=== PATIENT | female | born 1975 | race American Indian/Alaskan Native ===

== ENCOUNTER 2022-04-28 15:34 | Emergency (ER) | payer MEDICARE ==
[2022-04-28] MEDS ORDERED: HALOPERIDOL LACTATE 5 MG/1 ML INJ IM ONE (15:39)
[2022-04-28 16:18] LABS: Basophils # (Auto) 0.1 K/mm3 (0.0-0.1); Basophils % (Auto) 0.6 % (0.0-1.8); Eosinophils # (Auto) 0.2 K/mm3 (0.0-0.4); Eosinophils % (Auto) 1.5 % (0.0-4.3); Hematocrit 43.9 % (30.3-42.9); Lymphocytes # (Auto) 2.3 K/mm3 (1.2-5.4); Lymphocytes % (Auto) 20.3 % (13.4-35.0); Mean Corpuscular HGB Conc 32 % (30-34); Mean Corpuscular Volume 87 fl (79-97); Monocytes # (Auto) 1.1 K/mm3 (0.0-0.8); Monocytes % (Auto) 9.8 % (0.0-7.3); Platelet Count 378 K/mm3 (140-440); Red Blood Count 5.02 M/mm3 (3.65-5.03); Red Cell Distribution Width 15.3 % (13.2-15.2)
[2022-04-28 16:41] LABS: BUN/Creatinine Ratio 10; Blood Urea Nitrogen 10 mg/dL (7-17); Calcium 9.3 mg/dL (8.4-10.2); Hemolysis Index 2
[2022-04-28] MEDS ORDERED: LORazepam 1 MG TAB PO ONE (21:28)
[2022-04-28] MEDS: ZIPRASIDONE MESYLATE 20 MG VIAL IM PRN (21:43)
--- NOTE | 2022-04-28 21:56 | Emergency Department Report ---
ED General Adult HPI - General Chief complaint: Psych Stated complaint: MENTAL HEALTH PUI?: No Time Seen by Provider: 04/28/22 15:39 Source: EMS Mode of arrival: Ambulatory Limitations: Other - History of Present Illness Initial comments: Pt arriving from [place]. Presents rambling, yelling. pt verbliased threatening words to staff there, pt was 1013 by [facility] , manic agitated responding to internal stimuli -: unknown Severity scale (0 -10): 0 Consistency: constant Worsens with: none Associated Symptoms: denies: denies other symptoms, confusion, chest pain, cough - Related Data Home Medications Medication Instructions Recorded Confirmed Last Taken Divalproex ER [Depakote ER] 1,000 mg PO BID 09/01/14 09/01/14 Unknown Folic Acid [Folvite] 1 mg PO QDAY 09/01/14 09/01/14 Unknown LORazepam [Ativan] 0.5 mg PO 1800 09/01/14 09/01/14 Unknown LORazepam [Ativan] 2 mg PO HS 09/01/14 09/01/14 Unknown Topiramate [Topamax TAB] 200 mg PO HS 09/01/14 09/01/14 Unknown Valproic Acid [Depakene] 250 mg PO HS 09/01/14 09/01/14 Unknown Allergies Allergy/AdvReac Type Severity Reaction Status Date / Time diphenhydramine HCl Allergy Unknown Verified 09/01/14 10:42 [From Benadryl] ED Review of Systems ROS: Stated complaint: MENTAL HEALTH Other details as noted in HPI Comment: Unobtainable due to pts medical conditions ED Past Medical Hx - Past Medical History Hx Psychiatric Treatment: Yes - Surgical History Additional Surgical History: Left leg fracture repair as a child - Social History Smoking Status: Current Some Day Smoker Substance Use Type: None - Medications Home Medications: Home Medications Medication Instructions Recorded Confirmed Last Taken Type Divalproex ER [Depakote ER] 1,000 mg PO BID 09/01/14 09/01/14 Unknown History Folic Acid [Folvite] 1 mg PO QDAY 09/01/14 09/01/14 Unknown History LORazepam [Ativan] 0.5 mg PO 1800 09/01/14 09/01/14 Unknown History LORazepam [Ativan] 2 mg PO HS 09/01/14 09/01/14 Unknown History Topiramate [Topamax TAB] 200 mg PO HS 09/01/14 09/01/14 Unknown History Valproic Acid [Depakene] 250 mg PO HS 09/01/14 09/01/14 Unknown History ED Physical Exam - General Limitations: Other General appearance: alert, anxious - Head Head exam: Present: atraumatic, normocephalic - Eye Eye exam: Present: normal appearance - ENT ENT exam: Present: mucous membranes moist - Neck Neck exam: Present: normal inspection - Respiratory Respiratory exam: Present: normal lung sounds bilaterally. Absent: respiratory distress - Cardiovascular Cardiovascular Exam: Present: regular rate, normal rhythm. Absent: systolic murmur, diastolic murmur, rubs, gallop - GI/Abdominal GI/Abdominal exam: Present: soft, normal bowel sounds - Extremities Exam Extremities exam: Present: normal inspection - Back Exam Back exam: Present: normal inspection - Neurological Exam Neurological exam: Present: alert, oriented X3 - Psychiatric Psychiatric exam: Present: anxious, manic - Expanded Psychiatric Exam Expanded Focused psych exam: Present: pressured speech, internal stimuli, psychomotor agitation, delusional, paranoid, perseverating, restlessness - Skin Skin exam: Present: warm, dry, intact, normal color. Absent: rash ED Course Vital Signs 04/28/22 04/28/22 04/28/22 16:56 17:00 20:45 Temperature 97.3 F L 97.9 F Pulse Rate 85 83 Respiratory 18 18 Rate Blood Pressure 109/51 105/66 [Right] O2 Sat by Pulse 100 97 98 Oximetry 04/29/22 04/29/22 11:21 11:22 Temperature 97.6 F Pulse Rate 62 Respiratory 18 Rate Blood Pressure 121/58 [Right] O2 Sat by Pulse 97 97 Oximetry ED Medical Decision Making - Lab Data Result diagrams: 04/28/22 15:56 04/28/22 15:56 - Medical Decision Making medically cleared , 1013 by betty juares and karan given for agitation Critical care attestation.: If time is entered above; I have spent that time in minutes in the direct care of this critically ill patient, excluding procedure time. ED Disposition Clinical Impression: Agitation, Sondra, Psychosis Disposition: 30 STILL A PATIENT Is pt being admited?: No Does the pt Need Aspirin: No Condition: Stable Referrals: PRIMARY CARE, [Primary Care Provider] - 3-5 Days
[2022-04-29 02:14] LABS: Bilirubin,Urine NEG (Negative); Blood,Urine SM (Negative); Color,Urine Amber (Yellow)
[2022-04-29 02:15] LABS: Bacteria,Urine 2+ /HPF (Negative); Hyaline Casts,Urine 32 /LPF; Mucus,Urine 3+ /HPF
[2022-04-29 02:17] LABS: Amphetamine Screen,Urine PRESUMPTIVE NEGATIVE; Benzodiazepines Screen,Urine PRESUMPTIVE NEGATIVE; Cannabinoid Screen,Urine PRESUMPTIVE NEGATIVE; Cocaine Screen,Urine PRESUMPTIVE NEGATIVE; Methadone Screen,Urine PRESUMPTIVE NEGATIVE; Opiate Screen,Urine PRESUMPTIVE NEGATIVE
[2022-04-29] MEDS: ZIPRASIDONE MESYLATE 20 MG VIAL IM PRN (17:19)
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
[2022-04-29] MEDS: traZODone 50 MG TAB PO SCH (22:02)
[2022-04-29] MEDS: SULFAMETHOXAZOLE/TRIMETHOPRIM 800/160MG DS TAB PO SCH (22:02)
[2022-04-30] MEDS: SULFAMETHOXAZOLE/TRIMETHOPRIM 800/160MG DS TAB PO SCH ×2 (12:03→22:49)
--- NOTE | 2022-04-30 16:24 | Event Note ---
Date: 04/30/22 Patient reevaluated today. Upon my entering the room patient is lying comfortably in bed. States that she wants to leave. She appears to be mildly irritated that she is here and is cursing. Awaiting evaluation by mental health.
--- NOTE | 2022-04-30 17:35 | Progress Note ---
Subjective - Reason for Consult Consult date: 04/30/22 Reason for consult: MHE - Chief Complaint Chief complaint: SUBJECTIVE DATE SEEN:04/30/2022 Patient seen today in the ER. Patient lying on the bed, but got up when i came in. Patient States "i am really not sick" Patient hyper verbal, but denies having any SI/HI thoughts at this time.Patient states she is compliant with all her medications. Mental Status Exam - Vital signs Last Vital Signs Temp 98.6 F 04/30/22 11:25 Pulse 89 04/30/22 11:25 Resp 20 04/30/22 11:25 BP 138/82 04/30/22 11:25 Pulse Ox 98 04/30/22 11:25
[2022-04-30] MEDS: ZIPRASIDONE MESYLATE 20 MG VIAL IM PRN (22:49)
[2022-04-30] MEDS: traZODone 50 MG TAB PO SCH (22:49)
--- NOTE | 2022-05-01 11:31 | Event Note ---
Date: 05/01/22 I HAVE SEEN THE PATIENT MYSELF AND REVIEWED THE PREVIOUS NOTES WHICH NEED REPEAT CBC AND ALSO SODIUM TO BE DRAW; I WILL PLACE ORDER. PATIENT HERSELF DENIES SI/HI OR HALLUCINATION (AUDITORY/VISUAL/TACTILE). PENDING FURTHER RECOMMENDATION FROM BEHAVIOR HEALTH. - LOREDO
[2022-05-01 11:39] LABS: Hematocrit 44.4 % (30.3-42.9); Hemoglobin 14.2 gm/dl (10.1-14.3); Mean Corpuscular HGB Conc 32 % (30-34); Mean Corpuscular Volume 88 fl (79-97); Platelet Count 331 K/mm3 (140-440); Red Blood Count 5.05 M/mm3 (3.65-5.03); Red Cell Distribution Width 15.6 % (13.2-15.2)
[2022-05-01 11:54] LABS: BUN/Creatinine Ratio 11; Blood Urea Nitrogen 9 mg/dL (7-17); Calcium 9.1 mg/dL (8.4-10.2); Hemolysis Index 12
[2022-05-01] MEDS: SULFAMETHOXAZOLE/TRIMETHOPRIM 800/160MG DS TAB PO SCH (13:08)
--- NOTE | 2022-05-01 16:11 | Progress Note ---
<MARY GALICIA - Last Filed: 05/01/22 15:44> Subjective - Reason for Consult Consult date: 05/01/22 Reason for consult: MHE - Chief Complaint Chief complaint: Subjective - DATE SEEN: 05/01/22 Patient seen today. Patient asks" Can i go back to where i was or to my fathers place". Patient observed to be fidgeting . Patient denies any SI/HI at this time. SUBJECTIVE DATE SEEN:04/30/2022 Patient seen today in the ER. Patient lying on the bed, but got up when i came in. Patient States "i am really not sick" Patient hyper verbal, but denies having any SI/HI thoughts at this time.Patient states she is compliant with all her medications. Mental Status Exam - Vital signs Last Vital Signs Temp 98.6 F 04/30/22 11:25 Pulse 89 04/30/22 11:25 Resp 20 04/30/22 11:25 BP 138/82 04/30/22 11:25 Pulse Ox 98 04/30/22 11:25 <LISHA BENSON - Last Filed: 05/02/22 15:32> Mental Status Exam - Vital signs Last Vital Signs Temp 98.4 F 05/02/22 09:04 Pulse 65 05/02/22 09:04 Resp 18 05/02/22 09:04 BP 113/61 05/02/22 09:04 Pulse Ox 95 05/02/22 09:05
[2022-05-02] MEDS: SULFAMETHOXAZOLE/TRIMETHOPRIM 800/160MG DS TAB PO SCH ×2 (09:39→21:53)
--- NOTE | 2022-05-02 12:48 | Event Note ---
Date: 05/02/22 Patient is seen and examined. She is in no acute distress. Initial ER, psychiatric, and nursing documentation reviewed and appreciated. Patient deemed medically suitable for psychiatric placement and disposition during her initial evaluation. She continues to remain suitable for disposition and psychiatric placement. She does not appear to have an emergent medical condition present at this time. She did endorse constipation to nursing team. Have ordered as needed MiraLAX. Of note, urine cultures are negative thus far. Laboratory st udies, vital signs are reviewed and appreciated. Patient sitting down, watching TV, and in no acute distress Vital Signs 04/28/22 04/28/22 04/28/22 16:56 17:00 20:45 Temperature 97.3 F L 97.9 F Pulse Rate 85 83 Respiratory 18 18 Rate Blood Pressure 109/51 105/66 [Right] O2 Sat by Pulse 100 97 98 Oximetry 04/29/22 04/29/22 04/29/22 11:21 11:22 22:09 Temperature 97.6 F 98.0 F Pulse Rate 62 85 Respiratory 18 18 Rate Blood Pressure 121/58 136/73 [Right] O2 Sat by Pulse 97 97 96 Oximetry 04/30/22 05/01/22 05/02/22 11:25 17:25 09:04 Temperature 98.6 F 98.4 F Pulse Rate 89 75 65 Respiratory 20 18 18 Rate Blood Pressure 138/82 130/73 113/61 [Right] O2 Sat by Pulse 98 99 95 Oximetry 05/02/22 09:05 Temperature Pulse Rate Respiratory Rate Blood Pressure [Right] O2 Sat by Pulse 95 Oximetry Lab Results 04/28/22 04/28/22 04/28/22 Range/Units 00:00 15:39 15:56 WBC 11.5 H (4.5-11.0) K/mm3 RBC 5.02 (3.65-5.03) M/mm3 Hgb 14.0 (10.1-14.3) gm/dl Hct 43.9 H (30.3-42.9) % MCV 87 (79-97) fl MCH 28 (28-32) pg MCHC 32 (30-34) % RDW 15.3 H (13.2-15.2) % Plt Count 378 (140-440) K/mm3 Lymph % (Auto) 20.3 (13.4-35.0) % [place] % (Auto) 9.8 H (0.0-7.3) % Eos % (Auto) 1.5 (0.0-4.3) % Baso % (Auto) 0.6 (0.0-1.8) % Lymph # (Auto) 2.3 (1.2-5.4) K/mm3 [place] # (Auto) 1.1 H (0.0-0.8) K/mm3 Eos # (Auto) 0.2 (0.0-0.4) K/mm3 Baso # (Auto) 0.1 (0.0-0.1) K/mm3 Seg Neutrophils % 67.8 (40.0-70.0) % Seg Neutrophils # 7.8 H (1.8-7.7) K/mm3 Sodium (137-145) mmol/L Potassium (3.6-5.0) mmol/L Chloride (98-107) mmol/L Carbon Dioxide (22-30) mmol/L Anion Gap mmol/L BUN (7-17) mg/dL Creatinine (0.6-1.2) mg/dL Estimated GFR ml/min BUN/Creatinine Ratio % Glucose (65-100) mg/dL Calcium (8.4-10.2) mg/dL HCG, Qual (Negative) Urine Color [place] (Yellow) Urine Turbidity Cloudy (Clear) Urine pH 5.0 (5.0-7.0) Ur Specific [place] 1.028 (1.003-1.030) Urine Protein 30 mg/dl (Negative) mg/dL Urine Glucose (UA) Neg (Negative) mg/dL Urine Ketones Neg (Negative) mg/dL Urine Blood Sm (Negative) Urine Nitrite Neg (Negative) Urine Bilirubin Neg (Negative) Urine Urobilinogen 2.0 (<2.0) mg/dL Ur Leukocyte Esterase Neg (Negative) Urine WBC (Auto) 20.0 H (0.0-6.0) /HPF Urine RBC (Auto) 99.0 (0.0-6.0) /HPF U Epithel Cells (Auto) 10.0 (0-13.0) /HPF Urine Bacteria (Auto) 2+ (Negative) /HPF Hyaline Casts 32 /LPF Urine Mucus 3+ /HPF Urine Yeast (Budding) 3+ /HPF Salicylates (2.8-20.0) mg/dL Urine Opiates Screen Presumptive negative Urine Methadone Screen Presumptive negative Acetaminophen (10.0-30.0) ug/mL Ur Barbiturates Screen Presumptive negative Ur Phencyclidine Scrn Presumptive negative Ur Amphetamines Screen Presumptive negative U Benzodiazepines Scrn Presumptive negative Urine Cocaine Screen Presumptive negative U Marijuana (THC) Screen Presumptive negative Drugs of Abuse Note Disclamer Plasma/Serum Alcohol (0-0.07) % SARS-CoV-2 (PCR) (Negative) 04/28/22 04/28/22 04/28/22 Range/Units 15:56 15:56 15:56 WBC (4.5-11.0) K/mm3 RBC (3.65-5.03) M/mm3 Hgb (10.1-14.3) gm/dl Hct (30.3-42.9) % MCV (79-97) fl MCH (28-32) pg MCHC (30-34) % RDW (13.2-15.2) % Plt Count (140-440) K/mm3 Lymph % (Auto) (13.4-35.0) % [place] % (Auto) (0.0-7.3) % Eos % (Auto) (0.0-4.3) % Baso % (Auto) (0.0-1.8) % Lymph # (Auto) (1.2-5.4) K/mm3 [place] # (Auto) (0.0-0.8) K/mm3 Eos # (Auto) (0.0-0.4) K/mm3 Baso # (Auto) (0.0-0.1) K/mm3 Seg Neutrophils % (40.0-70.0) % Seg Neutrophils # (1.8-7.7) K/mm3 Sodium 146 H (137-145) mmol/L Potassium 3.7 (3.6-5.0) mmol/L Chloride 111.6 H (98-107) mmol/L Carbon Dioxide 19 L (22-30) mmol/L Anion Gap 19 mmol/L BUN 10 (7-17) mg/dL Creatinine 1.0 (0.6-1.2) mg/dL Estimated GFR > 60 ml/min BUN/Creatinine Ratio 10 % Glucose 108 H (65-100) mg/dL Calcium 9.3 (8.4-10.2) mg/dL HCG, Qual (Negative) Urine Color (Yellow) Urine Turbidity (Clear) Urine pH (5.0-7.0) Ur Specific [place] (1.003-1.030) Urine Protein (Negative) mg/dL Urine Glucose (UA) (Negative) mg/dL Urine Ketones (Negative) mg/dL Urine Blood (Negative) Urine Nitrite (Negative) Urine Bilirubin (Negative) Urine Urobilinogen (<2.0) mg/dL Ur Leukocyte Esterase (Negative) Urine WBC (Auto) (0.0-6.0) /HPF Urine RBC (Auto) (0.0-6.0) /HPF U Epithel Cells (Auto) (0-13.0) /HPF Urine Bacteria (Auto) (Negative) /HPF Hyaline Casts /LPF Urine Mucus /HPF Urine Yeast (Budding) /HPF Salicylates < 0.3 L (2.8-20.0) mg/dL Urine Opiates Screen Urine Methadone Screen Acetaminophen 5.0 L (10.0-30.0) ug/mL Ur Barbiturates Screen Ur Phencyclidine Scrn Ur Amphetamines Screen U Benzodiazepines Scrn Urine Cocaine Screen U Marijuana (THC) Screen Drugs of Abuse Note Plasma/Serum Alcohol (0-0.07) % SARS-CoV-2 (PCR) (Negative) 04/29/22 05/01/22 05/01/22 Range/Units 09:58 11:18 11:18 WBC 6.8 (4.5-11.0) K/mm3 RBC 5.05 H (3.65-5.03) M/mm3 Hgb 14.2 (10.1-14.3) gm/dl Hct 44.4 H (30.3-42.9) % MCV 88 (79-97) fl MCH 28 (28-32) pg MCHC 32 (30-34) % RDW 15.6 H (13.2-15.2) % Plt Count 331 (140-440) K/mm3 Lymph % (Auto) (13.4-35.0) % [place] % (Auto) (0.0-7.3) % Eos % (Auto) (0.0-4.3) % Baso % (Auto) (0.0-1.8) % Lymph # (Auto) (1.2-5.4) K/mm3 [place] # (Auto) (0.0-0.8) K/mm3 Eos # (Auto) (0.0-0.4) K/mm3 Baso # (Auto) (0.0-0.1) K/mm3 Seg Neutrophils % (40.0-70.0) % Seg Neutrophils # (1.8-7.7) K/mm3 Sodium 140 (137-145) mmol/L Potassium 4.4 (3.6-5.0) mmol/L Chloride 105.8 (98-107) mmol/L Carbon Dioxide 25 (22-30) mmol/L Anion Gap 14 mmol/L BUN 9 (7-17) mg/dL Creatinine 0.8 (0.6-1.2) mg/dL Estimated GFR > 60 ml/min BUN/Creatinine Ratio 11 % Glucose 93 (65-100) mg/dL Calcium 9.1 (8.4-10.2) mg/dL HCG, Qual (Negative) Urine Color (Yellow) Urine Turbidity (Clear) Urine pH (5.0-7.0) Ur Specific [place] (1.003-1.030) Urine Protein (Negative) mg/dL Urine Glucose (UA) (Negative) mg/dL Urine Ketones (Negative) mg/dL Urine Blood (Negative) Urine Nitrite (Negative) Urine Bilirubin (Negative) Urine Urobilinogen (<2.0) mg/dL Ur Leukocyte Esterase (Negative) Urine WBC (Auto) (0.0-6.0) /HPF Urine RBC (Auto) (0.0-6.0) /HPF U Epithel Cells (Auto) (0-13.0) /HPF Urine Bacteria (Auto) (Negative) /HPF Hyaline Casts /LPF Urine Mucus /HPF Urine Yeast (Budding) /HPF Salicylates (2.8-20.0) mg/dL Urine Opiates Screen Urine Methadone Screen Acetaminophen (10.0-30.0) ug/mL Ur Barbiturates Screen Ur Phencyclidine Scrn Ur Amphetamines Screen U Benzodiazepines Scrn Urine Cocaine Screen U Marijuana (THC) Screen Drugs of Abuse Note Plasma/Serum Alcohol (0-0.07) % SARS-CoV-2 (PCR) Negative (Negative) 05/02/22 05/02/22 Range/Units 08:14 08:14 WBC (4.5-11.0) K/mm3 RBC (3.65-5.03) M/mm3 Hgb (10.1-14.3) gm/dl Hct (30.3-42.9) % MCV (79-97) fl MCH (28-32) pg MCHC (30-34) % RDW (13.2-15.2) % Plt Count (140-440) K/mm3 Lymph % (Auto) (13.4-35.0) % [place] % (Auto) (0.0-7.3) % Eos % (Auto) (0.0-4.3) % Baso % (Auto) (0.0-1.8) % Lymph # (Auto) (1.2-5.4) K/mm3 [place] # (Auto) (0.0-0.8) K/mm3 Eos # (Auto) (0.0-0.4) K/mm3 Baso # (Auto) (0.0-0.1) K/mm3 Seg Neutrophils % (40.0-70.0) % Seg Neutrophils # (1.8-7.7) K/mm3 Sodium (137-145) mmol/L Potassium (3.6-5.0) mmol/L Chloride (98-107) mmol/L Carbon Dioxide (22-30) mmol/L Anion Gap mmol/L BUN (7-17) mg/dL Creatinine (0.6-1.2) mg/dL Estimated GFR ml/min BUN/Creatinine Ratio % Glucose (65-100) mg/dL Calcium (8.4-10.2) mg/dL HCG, Qual Negative (Negative) Urine Color (Yellow) Urine Turbidity (Clear) Urine pH (5.0-7.0) Ur Specific [place] (1.003-1.030) Urine Protein (Negative) mg/dL Urine Glucose (UA) (Negative) mg/dL Urine Ketones (Negative) mg/dL Urine Blood (Negative) Urine Nitrite (Negative) Urine Bilirubin (Negative) Urine Urobilinogen (<2.0) mg/dL Ur Leukocyte Esterase (Negative) Urine WBC (Auto) (0.0-6.0) /HPF Urine RBC (Auto) (0.0-6.0) /HPF U Epithel Cells (Auto) (0-13.0) /HPF Urine Bacteria (Auto) (Negative) /HPF Hyaline Casts /LPF Urine Mucus /HPF Urine Yeast (Budding) /HPF Salicylates (2.8-20.0) mg/dL Urine Opiates Screen Urine Methadone Screen Acetaminophen (10.0-30.0) ug/mL Ur Barbiturates Screen Ur Phencyclidine Scrn Ur Amphetamines Screen U Benzodiazepines Scrn Urine Cocaine Screen U Marijuana (THC) Screen Drugs of Abuse Note Plasma/Serum Alcohol < 0.01 (0-0.07) % SARS-CoV-2 (PCR) (Negative)
--- NOTE | 2022-05-02 14:40 | Progress Note ---
Subjective - Reason for Consult Reason for consult: MHE - Chief Complaint Chief complaint: Subjective DATE SEEN: 05/02/22 Patient seen today. Patient fidgeting and having pressured speech. Awaiting placement at this time. - DATE SEEN: 05/01/22 Patient seen today. Patient asks" Can i go back to where i was or to my fathers place". Patient observed to be fidgeting . Patient denies any SI/HI at this time. SUBJECTIVE DATE SEEN:04/30/2022 Patient seen today in the ER. Patient lying on the bed, but got up when i came in. Patient States "i am really not sick" Patient hyper verbal, but denies having any SI/HI thoughts at this time.Patient states she is compliant with all her medications. Mental Status Exam - Vital signs Last Vital Signs Temp 98.4 F 05/02/22 09:04 Pulse 65 05/02/22 09:04 Resp 18 05/02/22 09:04 BP 113/61 05/02/22 09:04 Pulse Ox 95 05/02/22 09:05
[2022-05-02] MEDS: DIVALPROEX DR 500 MG TAB PO SCH (21:53)
[2022-05-02] MEDS: POLYETHYLENE GLYCOL 3350 17 GM POWDER PO PRN (21:53)
[2022-05-02] MEDS: traZODone 50 MG TAB PO SCH (21:53)
[2022-05-02] MEDS ORDERED: TOPIRAMATE TAB 200 MG TAB PO SCH (22:00)
[2022-05-02] MEDS ORDERED: VALPROIC ACID 250 MG CAP PO SCH (22:00)
[2022-05-03] MEDS: DIVALPROEX DR 500 MG TAB PO SCH (10:29)
[2022-05-03] MEDS: SULFAMETHOXAZOLE/TRIMETHOPRIM 800/160MG DS TAB PO SCH ×2 (10:29→22:53)
--- NOTE | 2022-05-03 10:48 | Progress Note ---
Subjective - Reason for Consult Consult date: 05/03/22 Reason for consult: depression - Chief Complaint Chief complaint: The patient was seen today. She has been refusing her medications. The patient states she was concerned because she is not getting what she was taking at home. The patient also communicated this to the nurse on 05/01 per documentation. The patient is calm, and cooperative. She denies SI/HI. She also denies hallucinations of any kind. The patient says she lives at a senior living with "Nick Sheikh." The nurse caring for the patient today, states that she has been psychotic but less psychotic today. The nurse says "better but she's still all over the place." She says the patient has made bizarre statements like, "I don't want to take the depakote it might make my head fall out." The nurse also says the patient has been disorganized at times. Will place the patient back on her home medications, and continue inpatient recommendation for stabilization. REVIEW OF SYSTEMS ROS cannot be reliably obtained from the patient due to her confusion and somnolence. Constitutional: Negative for weight loss ENT: Negative for stridor Respiratory: Negative for cough or hemoptysis All other systems reviewed and are negative MENTAL STATUS EXAMINATION General Appearance and Behavior: Age appropriate, wearing appropriate clothes, cooperative, polite with questioning, good eye contact Cooperation: cooperative Psychomotor Behavior: Psychomotor normal Mood: okay Affect and affective range: congruent with stated affect Thought Process: Goal directed Thought Content: None Speech: Normal volume, Regular rate and rhythm Suicidal Ideation: Denies Homicidal Ideation: Denies Hallucination: Denies Delusions: None elicited Impulse Control: Limited Insight and Judgment: Limited Memory: Intact Attention:attentive Orientation: Alert and oriented Assessment: Delusion Disorder Treatment Plan 1013 D/c depakote D/c topamax Start Abilify 15mg po BID Start Trazodone 1000mg po qhs Start Cogentin 1mg po daily Start Trileptal 300mg po qam, 600 qhs Sitter: defer to primary Medical: per primary Disposition: Recommend acute psychiatric inpatient treatment Will follow. Thanks Case staffed with Dr. Gramajo Mental Status Exam - Vital signs Last Vital Signs Temp 98.6 F 05/03/22 09:17 Pulse 63 05/03/22 09:17 Resp 18 05/03/22 09:17 BP 104/50 05/03/22 09:17 Pulse Ox 99 05/03/22 09:17
[2022-05-03] MEDS: OXcarbazepine 300 MG TAB PO SCH (11:29)
[2022-05-03] MEDS: ARIPiprazole 15 MG TAB PO SCH ×2 (11:29→22:49)
[2022-05-03] MEDS: BENZTROPINE 1 MG TAB PO SCH (11:29)
--- NOTE | 2022-05-03 15:47 | Event Note ---
Patient reassessed by mental health today. Still reportedly displaying intermittent episodes of psychotic behavior and has not been taking her medications. Currently not suicidal or homicidal. We will keep [address]
[2022-05-03] MEDS ORDERED: traZODone 100 MG TAB PO SCH (22:00)
[2022-05-03] MEDS ORDERED: OXcarbazepine 300 MG TAB PO SCH (22:00)
[2022-05-03] MEDS: POLYETHYLENE GLYCOL 3350 17 GM POWDER PO PRN (22:56)
[2022-05-04 10:07] VITALS: BP 104/60
[2022-05-04] MEDS: ARIPiprazole 15 MG TAB PO SCH (10:23)
[2022-05-04] MEDS: OXcarbazepine 300 MG TAB PO SCH (10:23)
[2022-05-04] MEDS: SULFAMETHOXAZOLE/TRIMETHOPRIM 800/160MG DS TAB PO SCH (10:23)
[2022-05-04] MEDS: BENZTROPINE 1 MG TAB PO SCH (10:23)
--- NOTE | 2022-05-04 11:10 | Progress Note ---
Subjective - Reason for Consult Consult date: 05/04/22 Reason for consult: psychosis - Chief Complaint Chief complaint: The patient was seen today. She is calm and cooperative. She says she feels better and is ready to go. The patient says "I live with Nick Sheikh." She says "I'm gone take my medication and I'm gone do right this time." She denies SI/HI or hallucinations of any kind. The patient says she has been sleeping good. She says "the meds really do work." REVIEW OF SYSTEMS Constitutional: Negative for weight loss ENT: Negative for stridor Respiratory: Negative for cough or hemoptysis All other systems reviewed and are negative MENTAL STATUS EXAMINATION General Appearance and Behavior: Age appropriate, wearing appropriate clothes, cooperative, polite with questioning, good eye contact Cooperation: cooperative Psychomotor Behavior: Psychomotor normal Mood: better Affect and affective range: congruent with stated affect Thought Process: Goal directed Thought Content: None Speech: Normal volume, Regular rate and rhythm Suicidal Ideation: Denies Homicidal Ideation: Denies Hallucination: Denies Delusions: None elicited Impulse Control: Limited Insight and Judgment: Limited Memory: Intact Attention:attentive Orientation: Alert and oriented Assessment: Delusion Disorder Treatment Plan d/c 1013 Abilify 15mg po BID Trazodone 1000mg po qhs Cogentin 1mg po daily Trileptal 300mg po qam, 600 qhs Sitter: defer to primary Medical: per primary Disposition: Do not recommend acute psychiatric inpatient treatment. The patient understands that if SI/HI or any fear of endangerment arise she is to seek immediate assistance Will sign off. Thanks Case staffed with Dr. Gramajo Mental Status Exam - Vital signs Last Vital Signs Temp 98.2 F 05/04/22 10:06 Pulse 83 05/04/22 10:06 Resp 18 05/04/22 10:06 BP 104/60 05/04/22 10:06 Pulse Ox 96 05/04/22 10:07
--- NOTE | 2022-05-04 12:26 | Event Note ---
Date: 05/04/22 Patient reassessed by mental health today and deemed stable for discharge with outpatient follow-up.
== END 2022-05-04 13:39 | disposition home or self-care (01) ==
LOC: EEVIPCON 15:34 → ED 15:34
DX: F30.9 Manic episode, unspecified (principal); R45.1 Restlessness and agitation; Z20.822 Contact with and (suspected) exposure to COVID-19; F29 Unspecified psychosis not due to a substance or known physiological condition; Z98.890 Other specified postprocedural states; Z88.8 Allergy status to other drugs, medicaments and biological substances
CPT/HCPCS: 36415; 80048; 80307; 81001; 84703; 85025; 85027; 87086; 96372; 99284; J1630; J3486; U0003; 80320; G0480